=== PATIENT | male | born 1970 | race Caucasian/White ===

== ENCOUNTER → 2025-05-14 08:22 | Outpatient (REF) | payer BC, SELFPAY | LOC: RCS 08:22 | PROVIDERS: ATTENDING PHYSICIAN Internal Medicine; FAMILY PHYSICIAN Family Medicine Sports Medicine | DX: R00.2 Palpitations (principal); E78.00 Pure hypercholesterolemia, unspecified; R01.1 Cardiac murmur, unspecified | CPT/HCPCS: 93306 ==